=== PATIENT | female | born 1990 | race Caucasian/White ===

== ENCOUNTER 2017-08-11 10:01 | Day surgery (SDC) | payer OTHER ==
[2017-08-11] MEDS ORDERED: NEOSTIGMINE 10 MG/10 ML VIAL (J2710) (10:02)
[2017-08-11 10:30] LABS: CONTROL LINE UCG INT CTR LINE PRESENT; URINE PREG TEST NEGATIVE (NEGATIVE)
[2017-08-11] MEDS: LR 1,000 ML IV (10:37)
[2017-08-11] MEDS: CHLORHEXIDINE GLUCONATE 0.12 % 15ML UDC (PERIDEX ORAL RINSE) As Ordered (10:39)
[2017-08-11] MEDS: MEPIVACAINE HCL 3 % 1.7 ML DENTAL CARTRIDGE (CARBOCAINE) (J0670) As Ordered (10:39)
[2017-08-11] MEDS: CLINDAMYCIN 900 MG in APPROPRIATE DILUENT 1 EA IV (11:03)
[2017-08-11] MEDS ORDERED: fentaNYL 100 MCG/2 ML INJECTION (J3010) As Ordered ×2 (11:31→12:34)
[2017-08-11] MEDS ORDERED: MIDAZOLAM INJ 2 MG/2 ML VIAL (J2250) As Ordered (11:31)
[2017-08-11] MEDS ORDERED: PHENYLephrine HCL 500 MCG/5 ML (100MCG/ML) SYRINGE (J2370) As Ordered (11:34)
[2017-08-11] MEDS: dexameTHASONE 4 MG/ML 1ML VIAL (J1100) IV (11:35)
[2017-08-11] MEDS ORDERED: PROPOFOL 200 MG/20 ML VIAL As Ordered (11:37)
[2017-08-11] MEDS ORDERED: ROCURONIUM BROMIDE 50 MG/5 ML VIAL As Ordered (11:38)
[2017-08-11] MEDS ORDERED: LIDOCAINE 2% INJ 100 MG/5 ML SDV (FOR ANES.) As Ordered (11:39)
[2017-08-11] MEDS ORDERED: ONDANSETRON 4MG/2ML VIAL (J2405) As Ordered (11:39)
[2017-08-11] MEDS ORDERED: METOCLOPRAMIDE INJ 10MG/2ML VIAL (J2765) As Ordered (11:39)
[2017-08-11] MEDS ORDERED: NEOSTIGMINE 10 MG/10 ML VIAL (J2710) As Ordered (11:39)
[2017-08-11] MEDS ORDERED: dexameTHASONE 4 MG/ML 1ML VIAL (J1100) As Ordered ×2 (11:39)
[2017-08-11] MEDS ORDERED: GLYCOPYRROLATE INJ 0.2 MG/ML 2 ML VIAL As Ordered ×2 (11:40)
[2017-08-11] MEDS: LIDOCAINE 2% W/ EPINEPHRINE 1.7 ML DENTAL INJ As Ordered (12:21)
[2017-08-11] MEDS ORDERED: ESMOLOL INJ 100MG/10ML VIAL As Ordered (12:23)
[2017-08-11] MEDS ORDERED: LIDOCAINE 2% W/ EPINEPHRINE 1.7 ML DENTAL INJ As Ordered (12:43)
[2017-08-11] MEDS: fentaNYL 100 MCG/2 ML INJECTION (J3010) IV ×4 (12:45→13:10)
[2017-08-11] MEDS ORDERED: LR 1,000 ML IV (12:45)
[2017-08-11] MEDS: PERCOCET 5MG/325MG TAB PO ×2 (12:50→13:22)
[2017-08-11] MEDS: ONDANSETRON 4MG/2ML VIAL (J2405) IV (13:23)
== END 2017-08-11 15:45 | disposition home or self-care (01) ==
LOC: M SDC 10:01
DX: K01.1 Impacted teeth (principal); K02.9 Dental caries, unspecified; J45.909 Unspecified asthma, uncomplicated; F41.9 Anxiety disorder, unspecified; F32.9 Major depressive disorder, single episode, unspecified; R06.02 Shortness of breath; G60.0 Hereditary motor and sensory neuropathy; Z88.0 Allergy status to penicillin; Z79.899 Other long term (current) drug therapy; Z87.891 Personal history of nicotine dependence
CPT/HCPCS: D9223